=== PATIENT | female | born 1935 | race Caucasian/White ===

== ENCOUNTER → 2017-01-08 | Outpatient (CLI) | payer OTHER ==
[~2017-01-08] MED LIST: ADT ROBITUSSIN PO; ADVAIR 250/501 DISK IH; ALDACTONE25 MG PO; AMIODARONE HCL200 MG PO; ANTI-DIARRHEAL2 M2 PO; ASPIRIN81 M2 PO; ATIVAN0.5 MG PO; AZITHROMYCIN250 MG1 PO; BREO ELLIPTA I1 EACH IH; CALTRATE 6001 TABLE1 PO; CARDIZEM CD120 MG PO; CARDIZEM90 MG PO; CEFUROXIME500 MG PO; CELEXA20 MG PO; CITALOPRAM HBR20 MG PO; CORDARONE200 MG PO; COUMADIN3 MG PO; COUMADIN5 MG PO; COUMADIN6 MG PO; Cardizem CD,Cartia XT,Tiazac PO; Cordarone, Pacerone PO; DAILY VALUE1 EACH PO; DAILY VITAMIN1 EAC4 PO; DIGOXIN125 MCG PO; DURAGESIC12 MCG TD; FEOSOL325 MG PO; FUROSEMIDE20 MG PO; FUROSEMIDE40 MG PO; GLUCOPHAGE500 MG PO; IPRATR-ALBUTEROL3 ML IH; KEFLEX500 MG PO; LASIX20 MG PO; LASIX40 MG PO; LEVAQUIN500 MG PO; LEVOTHYROXINE50 MCG PO; LISINOPRIL2.5 MG PO; LIVALO4 MG PO; LOPID600 MG PO; LOPRESSOR25 MG PO; MACRODANTIN100 MG PO; MACRODANTIN50 M1 PO; MELATONIN5 M1 PO; METFORMIN HCL500 MG PO; METOPROLOL SUCC25 MG PO; METOPROLOL TART25 MG PO; NORCO 5/3251 TABLET PO; OMEPRAZOLE20 MG PO; ONDANSETRON HCL4 MG PO; ONE-A-DAY ESSE1 EAC1 PO; POTASSIUM CHLO10 ME3 PO; PRILOSEC OTC20 MG PO; PRILOSEC20 MG PO; PRINIVIL10 MG PO; PROMETHAZINE HC25 M1 PO; REMERON15 M2 PO; SILVADENE20 GM TP; SPIRONOLACTONE25 MG PO; SYNTHROID50 MCG PO; TOPROL XL25 MG PO; TRAMADOL HCL50 MG PO; TRIAMCINOLONE A15 GM TP; TUMS500 MG PO; TUSSIN CHE100 MG/5 M PO; TYLENOL EXTRA500 MG PO; ULTRAM50 MG PO; VENTOLIN HFA18 GM IH; VERAMYST10 GM BOTH NARES; VITAMIN D31000 UNI2 PO; WARFARIN SODIUM3 MG PO; WELCHOL3.75 GM PO; WELCHOL625 MG PO; ZOFRAN4 MG PO
== END | disposition home or self-care (01) ==
LOC: RAD 14:20 → EDSTATUS 14:30 → RAD 14:30
PROC: 0WP9X0Z Removal of Drainage Device from Right Pleural Cavity, External Approach (ICD-10-PCS; principal; 2017-01-08)
DX: T85.898A Other specified complication of other internal prosthetic devices, implants and grafts, initial encounter (principal)

== ENCOUNTER → 2017-01-12 | Outpatient (CLI) | payer OTHER | END | disposition home or self-care (01) | LOC: RAD 08:37 → EDSTATUS 09:00 → RAD 09:00 | PROC: 0W993ZZ Drainage of Right Pleural Cavity, Percutaneous Approach (ICD-10-PCS; principal; 2017-01-12) | DX: J90 Pleural effusion, not elsewhere classified (principal) ==

== ENCOUNTER → 2017-01-22 | Outpatient (CLI) | payer OTHER | END | disposition home or self-care (01) | LOC: RAD 08:45 → EDSTATUS 09:00 → RAD 09:00 | PROC: 0W993ZZ Drainage of Right Pleural Cavity, Percutaneous Approach (ICD-10-PCS; principal; 2017-01-22) | DX: J90 Pleural effusion, not elsewhere classified (principal) ==

== ENCOUNTER → 2017-01-31 | Outpatient (CLI) | payer OTHER ==
[~2017-01-31] VITALS: Ht 149.9 cm; Wt 53.6 kg
[2017-01-31 10:14] LABS: PROTHROMBIN TIME 18.2 (9.2-11.2)
[2017-01-31 10:17] LABS: HEMATOCRIT 30.1 % (36.0-46.0); MCH 26.1 PG (29.0-34.0); MCHC 30.6 G/DL (30.0-36.0); MCV 85.5 FL (83-99); MEAN PLAT.VOLUME 10.1 uM^3 (9.5-12.4); PLATELET COUNT 216 K/uL (156-360); RBC DIS.WIDTH-CV 15.9 % (11.8-14.6); RBC DIS.WIDTH-SD 49.9 % (39-53); RED BLOOD COUNT 3.52 M/uL (3.80-5.20); WHITE BLOOD COUNT 6.6 K/uL (4.1-10.2)
[2017-01-31 10:18] LABS: INTER. NORMALIZED RATIO 1.8
== END | disposition home or self-care (01) ==
LOC: EDSTATUS 01-11 10:00 → OPR 01-11 10:00
PROVIDERS: Radiology Diagnostic Radiology
PROC: 0W9930Z Drainage of Right Pleural Cavity with Drainage Device, Percutaneous Approach (ICD-10-PCS; principal; 2017-01-31)
DX: J90 Pleural effusion, not elsewhere classified (principal); Z88.8 Allergy status to other drugs, medicaments and biological substances
CPT/HCPCS: 85027; 85610; 85730; C1729; J3010

== ENCOUNTER 2017-02-08 19:40 | Inpatient (IN) | payer OTHER ==
[~2017-02-08] VITALS: Ht 149.9 cm; Wt 53.6 kg
[2017-02-08 20:57] LABS: HEMATOCRIT 29.2 % (36.0-46.0); MCH 26.3 PG (29.0-34.0); MCHC 30.8 G/DL (30.0-36.0); MCV 85.4 FL (83-99); MEAN PLAT.VOLUME 9.3 uM^3 (9.5-12.4); PLATELET COUNT 340 K/uL (156-360); RBC DIS.WIDTH-CV 15.9 % (11.8-14.6); RBC DIS.WIDTH-SD 49.3 % (39-53); RED BLOOD COUNT 3.42 M/uL (3.80-5.20); WHITE BLOOD COUNT 7.9 K/uL (4.1-10.2)
[2017-02-08 21:03] LABS: CHLORIDE 104 mEq/L (99-109); POTASSIUM 4.3 mEq/L (3.7-5.4); SODIUM 139 mEq/L (136-147)
[2017-02-08 21:05] LABS: GLUCOSE 118 mg/dL (70-99)
[2017-02-08 21:06] LABS: ANION GAP 13 MEQ/L (2-14)
[2017-02-08 21:09] LABS: GFR ESTIMATE (CALCULATED) 51 mL/min/
[2017-02-08 21:10] LABS: UREA NITROGEN (BUN) 21 mg/dL (9-23)
[2017-02-08 22:21] LABS: INTER. NORMALIZED RATIO 1.8; PROTHROMBIN TIME 18.7 (9.2-11.2)
[2017-02-08 22:34] LABS: TROP-I INTERPRETATION NEGATIVE; TROPONIN-I 0.02 ng/mL (0.0-0.30)
[2017-02-09 05:36] LABS: TROP-I INTERPRETATION NEGATIVE; TROPONIN-I 0.02 ng/mL (0.0-0.30)
[2017-02-09 05:37] VITALS: BP 134/67
[2017-02-09 07:32] VITALS: BP 130/62
[2017-02-09 07:42] LABS: HEMATOCRIT 26.1 % (36.0-46.0); MCV 83.7 FL (83-99); MEAN PLAT.VOLUME 9.8 uM^3 (9.5-12.4); PLATELET COUNT 300 K/uL (156-360); RBC DIS.WIDTH-SD 48.7 % (39-53); RED BLOOD COUNT 3.12 M/uL (3.80-5.20); WHITE BLOOD COUNT 7.1 K/uL (4.1-10.2)
[2017-02-09 08:27] LABS: ALKALINE PHOSPHATASE 72 IU/L (3-129); ANION GAP 9 MEQ/L (2-14); CHLORIDE 103 MEQ/L (99-109); GFR ESTIMATE (CALCULATED) > 59 mL/min/; GLUCOSE 105 mg/dL (70-99); POTASSIUM 4.1 MEQ/L (3.7-5.4); SAMPLE HEMOLYSIS CHECK 0; SAMPLE ICTERIC CHECK 0; SAMPLE LIPEMIA CHECK 0; SODIUM 138 MEQ/L (136-147); TOTAL BILIRUBIN 0.3 MG/DL (0.0-1.0); UREA NITROGEN (BUN) 19 mg/dL (9-23)
[2017-02-09 09:08] LABS: INTER. NORMALIZED RATIO 1.9; PROTHROMBIN TIME 19.4 (9.2-11.2)
[2017-02-09] MEDS ORDERED: DIGITEK125 MC2 PO (10:40)
[2017-02-09] MEDS ORDERED: WARFARIN SODIUM3 MG PO (10:40)
[2017-02-09 12:01] LABS: HEMATOCRIT 27.6 % (36.0-46.0); MCV 84.7 FL (83-99)
[2017-02-09 12:14] LABS: TROP-I INTERPRETATION NEGATIVE; TROPONIN-I 0.01 ng/mL (0.0-0.30)
[2017-02-09 15:12] VITALS: BP 147/64
[2017-02-09 19:00] VITALS: BP 133/59
[2017-02-10 03:00] VITALS: BP 126/58
[2017-02-10 07:35] LABS: PROTHROMBIN TIME 20.3 (9.2-11.2)
[2017-02-10 08:44] VITALS: BP 139/61
[2017-02-10 09:14] VITALS: BP 126/69
[2017-02-10 09:54] LABS: HEMATOCRIT 28.2 % (36.0-46.0); MCH 25.8 PG (29.0-34.0); MCHC 29.8 G/DL (30.0-36.0); MCV 86.8 FL (83-99); MEAN PLAT.VOLUME 10.3 uM^3 (9.5-12.4); PLATELET COUNT 330 K/uL (156-360); RBC DIS.WIDTH-SD 50.7 % (39-53); RED BLOOD COUNT 3.25 M/uL (3.80-5.20); WHITE BLOOD COUNT 6.7 K/uL (4.1-10.2)
[2017-02-10] MEDS ORDERED: AZITHROMYCIN500 M1 PO (10:49)
== END 2017-02-10 12:10 | disposition home or self-care (01) | DRG 812 ==
LOC: EME 19:40 → EDOF 02-09 04:08 → 5WEST 02-09 05:09
PROVIDERS: Emergency Medicine; Internal Medicine; Nurse Practitioner Family
DX: D64.9 Anemia, unspecified (principal); I48.0 Paroxysmal atrial fibrillation; Z79.01 Long term (current) use of anticoagulants; Z95.2 Presence of prosthetic heart valve; I12.9 Hypertensive chronic kidney disease with stage 1 through stage 4 chronic kidney disease, or unspecified chronic kidney disease; E11.22 Type 2 diabetes mellitus with diabetic chronic kidney disease; N18.3 Chronic kidney disease, stage 3 (moderate); J90 Pleural effusion, not elsewhere classified; I27.2 Other secondary pulmonary hypertension; E78.5 Hyperlipidemia, unspecified; G47.30 Sleep apnea, unspecified; J98.11 Atelectasis; K21.9 Gastro-esophageal reflux disease without esophagitis; E03.9 Hypothyroidism, unspecified; J44.9 Chronic obstructive pulmonary disease, unspecified; J81.1 Chronic pulmonary edema; Z66 Do not resuscitate
CPT/HCPCS: 71020; 71250; 80048; 80053; 83880; 84484; 85014; 85018; 85027; 85610; 85730; 87493; 93005; 93306; 94640; 99281; 99283; J2405

== ENCOUNTER → 2017-03-14 | Outpatient (CLI) | payer OTHER ==
[~2017-03-14] MED LIST changes: +AZITHROMYCIN500 M1 PO; +DIGITEK125 MC2 PO
== END | disposition home or self-care (01) ==
LOC: RAD 08:32 → EDSTATUS 09:00 → RAD 09:00
PROC: 0WP9X0Z Removal of Drainage Device from Right Pleural Cavity, External Approach (ICD-10-PCS; principal; 2017-03-14)
DX: Z46.82 Encounter for fitting and adjustment of non-vascular catheter (principal)
CPT/HCPCS: 32552

== ENCOUNTER 2017-09-16 17:38 | Emergency (ER) | payer OTHER ==
[~2017-09-16] VITALS: Ht 149.9 cm; Wt 54.2 kg
[2017-09-16] MEDS ORDERED: WELCHOL625 MG PO (18:20)
[2017-09-16 18:51] LABS: EOSINOPHIL (%) 0.2 % (0-5); HEMATOCRIT 30.4 % (36.0-46.0); IMMATURE GRANULOCYTE (%) 0.7 % (0.0-0.7); INSTRUMENT ABS NEUTROPHIL CT 4.3 K/uL; LYMPHOCYTE COUNT 0.7 K/uL (1.0-2.8); MCH 27.2 PG (29.0-34.0); MCHC 31.9 G/DL (30.0-36.0); MCV 85.4 FL (83-99); MEAN PLAT.VOLUME 10.3 uM^3 (9.5-12.4); MONOCYTE (%) 10.9 % (3-12); MONOCYTE COUNT 0.6 K/uL (0-0.8); NEUTROPHIL (%) 76.2 % (45-76); NEUTROPHIL COUNT 4.3 K/uL (1.8-6.4); PLATELET COUNT 139 K/uL (156-360); RBC DIS.WIDTH-CV 16.7 % (11.8-14.6); RBC DIS.WIDTH-SD 52.4 % (39-53); RED BLOOD COUNT 3.56 M/uL (3.80-5.20); WHITE BLOOD COUNT 5.6 K/uL (4.1-10.2)
[2017-09-16 18:58] LABS: CHLORIDE 103 mEq/L (99-109); POTASSIUM 4.5 mEq/L (3.7-5.4); SODIUM 136 mEq/L (136-147)
[2017-09-16 19:01] LABS: GLUCOSE 113 mg/dL (70-99)
[2017-09-16 19:02] LABS: ANION GAP 9 MEQ/L (2-14)
[2017-09-16 19:03] LABS: TOTAL BILIRUBIN 0.4 mg/dL (0.0-1.0)
[2017-09-16 19:04] LABS: ALKALINE PHOSPHATASE 82 IU/L (3-129); GFR ESTIMATE (CALCULATED) 51 mL/min/
[2017-09-16 19:05] LABS: UREA NITROGEN (BUN) 28 mg/dL (9-23)
[2017-09-16 19:10] LABS: TROP-I INTERPRETATION NEGATIVE; TROPONIN-I 0.02 ng/mL (0.0-0.30)
[2017-09-16 19:24] LABS: ADD MIUA? YES; BILIRUBIN NEGATIVE; BLOOD NEGATIVE; COLOR YELLOW ((YELLOW)); GLUCOSE (STRIP) NEGATIVE; KETONES NEGATIVE; LEUKOCYTES NEGATIVE; NITRITE NEGATIVE; PROTEIN (STRIP) NEGATIVE; SPECIFIC GRAVITY 1.008 (1.000-1.030); UROBILINOGEN 0.2 MG/DL (0.2-1.0)
[2017-09-16 19:32] LABS: BACTERIA 2+ /HPF; CALCIUM OXALATE CRYSTALS 2+ /HPF; EPITHELIAL CELLS RARE /HPF; MUCUS NONE SEEN /LPF; RED BLOOD CELLS 0-5 /HPF (0-5); UCUL ADDED? YES; WHITE BLOOD CELLS 0-5 /HPF (0-5)
[2017-09-16] MEDS ORDERED: MECLIZINE HCL25 MG PO (21:49)
[2017-09-16 22:07] VITALS: BP 143/69
== END 2017-09-16 22:07 | disposition home or self-care (01) ==
LOC: EME 17:38
PROVIDERS: Emergency Medicine
DX: R42 Dizziness and giddiness (principal); R53.1 Weakness; R05 Cough; I48.2 Chronic atrial fibrillation; Z86.73 Personal history of transient ischemic attack (TIA), and cerebral infarction without residual deficits; Z86.718 Personal history of other venous thrombosis and embolism; Z95.2 Presence of prosthetic heart valve; J44.9 Chronic obstructive pulmonary disease, unspecified; K21.9 Gastro-esophageal reflux disease without esophagitis; Z85.3 Personal history of malignant neoplasm of breast; M35.3 Polymyalgia rheumatica; I11.0 Hypertensive heart disease with heart failure; I50.9 Heart failure, unspecified; Z79.01 Long term (current) use of anticoagulants; Z87.891 Personal history of nicotine dependence; Z88.0 Allergy status to penicillin; Z88.2 Allergy status to sulfonamides; Z88.1 Allergy status to other antibiotic agents; Z88.8 Allergy status to other drugs, medicaments and biological substances
CPT/HCPCS: 70450; 71010; 80053; 81003; 84484; 85025; 87086; 93005; 99281; 99285; J7040

== ENCOUNTER 2018-02-04 11:14 | Inpatient (IN) | payer OTHER ==
[~2018-02-04] VITALS: Ht 149.9 cm; Wt 50.4 kg
[2018-02-04] VITALS (15 sets, daily range): BP systolic 117–151; BP diastolic 41–65
[~2018-02-04 11:14] MED LIST changes: +MECLIZINE HCL25 MG PO
[2018-02-04 12:00] LABS: HEMOGLOBIN 6.7 G/DL (11.9-15.5); MCH 27.6 PG (29.0-34.0); MCHC 31.9 G/DL (30.0-36.0); MCV 86.4 FL (83-99); PLATELET COUNT 131 K/uL (156-360); RBC DIS.WIDTH-CV 16.9 % (11.8-14.6); RBC DIS.WIDTH-SD 53.1 % (39-53); RED BLOOD COUNT 2.43 M/uL (3.80-5.20)
[2018-02-04 12:08] LABS: ALBUMIN 3.6 g/dL (3.2-4.8)
[2018-02-04 12:09] LABS: CHLORIDE 103 mEq/L (99-109); POTASSIUM 3.7 mEq/L (3.7-5.4); SODIUM 141 mEq/L (136-147)
[2018-02-04 12:11] LABS: GLUCOSE 144 mg/dL (70-99); TOTAL PROTEIN 6.5 g/dL (6.4-8.3)
[2018-02-04 12:13] LABS: TOTAL BILIRUBIN 0.4 mg/dL (0.0-1.0)
[2018-02-04 12:14] LABS: ALKALINE PHOSPHATASE 80 IU/L (3-129)
[2018-02-04 12:15] LABS: CREATININE 1.2 mg/dL (0.6-1.3); GFR ESTIMATE (CALCULATED) 46 mL/min/
[2018-02-04 12:16] LABS: AST (GOT) 25 IU/L (2-34); UREA NITROGEN (BUN) 82 mg/dL (9-23)
[2018-02-04 12:18] LABS: ALT (GPT) 15 IU/L (3-49)
[2018-02-04 12:21] LABS: TROP-I INTERPRETATION NEGATIVE; TROPONIN-I 0.04 ng/mL (0.0-0.30)
[2018-02-04 12:39] LABS: INTER. NORMALIZED RATIO 14.2
[2018-02-04 12:58] LABS: APPEARANCE SL.HAZY ((CLEAR)); BILIRUBIN NEGATIVE; BLOOD LARGE; COLOR YELLOW ((YELLOW)); GLUCOSE (STRIP) NEGATIVE; KETONES NEGATIVE; LEUKOCYTES TRACE; NITRITE NEGATIVE; PROTEIN (STRIP) NEGATIVE; SPECIFIC GRAVITY 1.015 (1.000-1.030); UROBILINOGEN 0.2 MG/DL (0.2-1.0)
[2018-02-04 13:06] LABS: BACTERIA RARE /HPF; EPITHELIAL CELLS RARE /HPF; HYALINE CASTS 0-5 /LPF; MUCUS TRACE /LPF; RED BLOOD CELLS TNTC /HPF (0-5)
[2018-02-04 13:58] LABS: HDL CHOLESTEROL 35 MG/DL (Desirable>=50); LDL CHOLESTEROL 72 mg/dL (Desirable<100); NON-HDL CHOLESTEROL 130 mg/dL (Desirable<160); TOTAL CHOLESTEROL 165 mg/dL (Desirable<200); TRIGLYCERIDES 291 MG/DL (Normal: <150)
[2018-02-04 14:32] LABS: HEMOGLOBIN A1c (GLYCOHEMOGLOB) 5.3 % (Below 5.7)
[2018-02-04] MEDS ORDERED: NITROFURANTOIN50 MG PO (16:00)
[2018-02-04] MEDS ORDERED: PRESERVISION T1 EACH PO (16:02)
[2018-02-04] MEDS ORDERED: MELATONIN5 M1 PO (16:03)
[2018-02-04] MEDS ORDERED: WARFARIN SODIUM3 MG PO (16:04)
[2018-02-04 19:38] LABS: TROP-I INTERPRETATION NEGATIVE; TROPONIN-I 0.04 ng/mL (0.0-0.30)
[2018-02-05] VITALS (14 sets, daily range): BP systolic 112–156; BP diastolic 55–77
[2018-02-05 03:32] LABS: TROP-I INTERPRETATION NEGATIVE; TROPONIN-I 0.05 ng/mL (0.0-0.30)
[2018-02-05 10:21] LABS: HEMATOCRIT 24.6 % (36.0-46.0); MCH 28.7 PG (29.0-34.0); MCHC 32.5 G/DL (30.0-36.0); MCV 88.2 FL (83-99); PLATELET COUNT 98 K/uL (156-360); RBC DIS.WIDTH-CV 15.5 % (11.8-14.6); RBC DIS.WIDTH-SD 49.1 % (39-53); RED BLOOD COUNT 2.79 M/uL (3.80-5.20); WHITE BLOOD COUNT 9.2 K/uL (4.1-10.2)
[2018-02-05 10:51] LABS: CHLORIDE 100 MEQ/L (99-109); CREATININE 1.2 MG/DL (0.6-1.3); GFR ESTIMATE (CALCULATED) 46 mL/min/; GLUCOSE 155 mg/dL (70-99); POTASSIUM 3.5 MEQ/L (3.7-5.4); SODIUM 140 MEQ/L (136-147); UREA NITROGEN (BUN) 74 mg/dL (9-23)
[2018-02-06 04:02] VITALS: BP 149/67
[2018-02-06 05:30] LABS: HEMATOCRIT 24.2 % (36.0-46.0); HEMOGLOBIN 7.8 G/DL (11.9-15.5); MCH 28.3 PG (29.0-34.0); MCHC 32.2 G/DL (30.0-36.0); MCV 87.7 FL (83-99); PLATELET COUNT 104 K/uL (156-360); RBC DIS.WIDTH-CV 15.9 % (11.8-14.6); RBC DIS.WIDTH-SD 49.9 % (39-53); RED BLOOD COUNT 2.76 M/uL (3.80-5.20); WHITE BLOOD COUNT 6.7 K/uL (4.1-10.2)
[2018-02-06 06:00] LABS: CHLORIDE 102 MEQ/L (99-109); CREATININE 1.1 MG/DL (0.6-1.3); GFR ESTIMATE (CALCULATED) 50 mL/min/; POTASSIUM 3.6 MEQ/L (3.7-5.4); SODIUM 141 MEQ/L (136-147); UREA NITROGEN (BUN) 56 mg/dL (9-23)
[2018-02-06 06:07] LABS: GLUCOSE 115 mg/dL (70-99)
[2018-02-06 07:51] VITALS: BP 143/64
[2018-02-06 09:38] LABS: INTER. NORMALIZED RATIO 1.1
[2018-02-06 12:30] VITALS: BP 143/65
[2018-02-06 15:52] VITALS: BP 144/64
[2018-02-06 20:40] VITALS: BP 133/62
[2018-02-07 00:25] VITALS: BP 132/63
[2018-02-07 04:10] VITALS: BP 121/69
[2018-02-07 06:04] LABS: HEMATOCRIT 25.2 % (36.0-46.0); MCH 28.9 PG (29.0-34.0); MCHC 31.7 G/DL (30.0-36.0); PLATELET COUNT 114 K/uL (156-360); RBC DIS.WIDTH-CV 16.4 % (11.8-14.6); RBC DIS.WIDTH-SD 51.9 % (39-53); RED BLOOD COUNT 2.77 M/uL (3.80-5.20); WHITE BLOOD COUNT 6.4 K/uL (4.1-10.2)
[2018-02-07 06:17] LABS: INTER. NORMALIZED RATIO 1.2
[2018-02-07 06:33] LABS: CHLORIDE 103 MEQ/L (99-109); GFR ESTIMATE (CALCULATED) 56 mL/min/; GLUCOSE 97 mg/dL (70-99); POTASSIUM 3.8 MEQ/L (3.7-5.4); SODIUM 140 MEQ/L (136-147); UREA NITROGEN (BUN) 38 mg/dL (9-23)
[2018-02-07 07:15] VITALS: BP 144/64
[2018-02-07 11:24] VITALS: BP 116/56
[2018-02-07 14:50] LABS: APPEARANCE SL.HAZY ((CLEAR)); BILIRUBIN NEGATIVE; BLOOD MODERATE; COLOR YELLOW ((YELLOW)); GLUCOSE (STRIP) NEGATIVE; KETONES NEGATIVE; LEUKOCYTES SMALL; NITRITE NEGATIVE; PROTEIN (STRIP) NEGATIVE; SPECIFIC GRAVITY 1.009 (1.000-1.030); UROBILINOGEN 0.2 MG/DL (0.2-1.0)
[2018-02-07 15:01] LABS: BACTERIA RARE /HPF; EPITHELIAL CELLS RARE /HPF; MUCUS TRACE /LPF; RED BLOOD CELLS 0-5 /HPF (0-5); WHITE BLOOD CELLS 30-40 /HPF (0-5)
[2018-02-07 16:02] VITALS: BP 118/60
[2018-02-07 19:00] VITALS: BP 146/70
[2018-02-08 00:15] VITALS: BP 123/72
[2018-02-08 05:24] LABS: HEMATOCRIT 24.3 % (36.0-46.0); HEMOGLOBIN 7.5 G/DL (11.9-15.5); MCH 28.5 PG (29.0-34.0); MCHC 30.9 G/DL (30.0-36.0); MCV 92.4 FL (83-99); PLATELET COUNT 123 K/uL (156-360); RBC DIS.WIDTH-CV 16.9 % (11.8-14.6); RBC DIS.WIDTH-SD 53.1 % (39-53); RED BLOOD COUNT 2.63 M/uL (3.80-5.20); WHITE BLOOD COUNT 5.7 K/uL (4.1-10.2)
[2018-02-08 05:30] VITALS: BP 134/65
[2018-02-08 05:51] LABS: CHLORIDE 103 MEQ/L (99-109); GFR ESTIMATE (CALCULATED) 56 mL/min/; GLUCOSE 86 mg/dL (70-99); POTASSIUM 4.3 MEQ/L (3.7-5.4); SODIUM 140 MEQ/L (136-147); UREA NITROGEN (BUN) 29 mg/dL (9-23)
[2018-02-08 07:58] VITALS: BP 121/78
[2018-02-08 15:05] VITALS: BP 115/74
[2018-02-08 19:14] VITALS: BP 116/55
[2018-02-08 23:28] VITALS: BP 112/53
[2018-02-09 05:33] VITALS: BP 119/81
[2018-02-09 07:13] VITALS: BP 153/76
[2018-02-09 10:47] VITALS: BP 126/74
[2018-02-09] MEDS ORDERED: PANTOPRAZOLE SO40 MG PO (11:17)
[2018-02-09] MEDS ORDERED: CEPHALEXIN250 MG PO (11:21)
== END 2018-02-09 12:05 | disposition home health service (06) | DRG 813 ==
LOC: EME 11:14 → 4EAST 14:12 → EDOF 14:12 → ENRESERV 14:14 → 4EAST 19:38
PROVIDERS: Emergency Medicine; Family Medicine; Physician Assistant Medical
DX: D68.9 Coagulation defect, unspecified (principal); D62 Acute posthemorrhagic anemia; I48.0 Paroxysmal atrial fibrillation; N39.0 Urinary tract infection, site not specified; E03.9 Hypothyroidism, unspecified; K92.2 Gastrointestinal hemorrhage, unspecified; Z79.01 Long term (current) use of anticoagulants; I11.0 Hypertensive heart disease with heart failure; E78.5 Hyperlipidemia, unspecified; F32.9 Major depressive disorder, single episode, unspecified; Z66 Do not resuscitate; I50.9 Heart failure, unspecified; J43.9 Emphysema, unspecified; K21.9 Gastro-esophageal reflux disease without esophagitis; M35.3 Polymyalgia rheumatica; I08.1 Rheumatic disorders of both mitral and tricuspid valves; M81.0 Age-related osteoporosis without current pathological fracture; M35.00 Sjogren syndrome, unspecified; B96.20 Unspecified Escherichia coli [E. coli] as the cause of diseases classified elsewhere; H91.90 Unspecified hearing loss, unspecified ear; Z95.3 Presence of xenogenic heart valve; Z90.710 Acquired absence of both cervix and uterus; Z87.11 Personal history of peptic ulcer disease; Z86.73 Personal history of transient ischemic attack (TIA), and cerebral infarction without residual deficits; Z85.3 Personal history of malignant neoplasm of breast; Z79.899 Other long term (current) drug therapy; Z72.0 Tobacco use; Z88.6 Allergy status to analgesic agent; Z88.0 Allergy status to penicillin; Z88.2 Allergy status to sulfonamides; Z82.49 Family history of ischemic heart disease and other diseases of the circulatory system
CPT/HCPCS: 70450; 71045; 80048; 80053; 80061; 81003; 83036; 84484; 85027; 85610; 85730; 86850; 86900; 86901; 86920; 87077; 87086; 87186; 93005; 99281; 99285; C9113; J1940; J3010; J3430; J7050; P9016; P9017